=== PATIENT | female | born 1975 | race Caucasian/White ===

== ENCOUNTER 2023-09-19 22:53 | Emergency (ER) | payer BC, SELFPAY ==
[2023-09-19 23:24] LABS: Basophils % 0.4 %; Eosinophils # 0.1 10^3/uL (0.0-0.8); Eosinophils % 1.7 %; Hematocrit 33.5 % (36-47); Lymphocytes # 2.4 10^3/uL (0.8-4.8); Lymphocytes % 32.4 %; Mean Corpuscular HGB Conc 30.7 g/dL (30-55); Mean Corpuscular Volume 78.1 fl (85-98); Mean Platelet Volume 11.1 fL (7.4-10.4); Monocytes # 0.5 10^3/uL (0.2-0.9); Monocytes % 6.4 %; Neutrophils # 4.43 10^3/uL (1.8-7.7); Nucleated Red Blood Cells % 0 %; Platelet Count 276 10^3/cmm (157-399); Red Blood Count 4.29 10^6/uL (3.85-5.65); Red Cell Distribution Width 14.1 % (12.1-15.1); White Blood Count 7.52 10^3/uL (3.29-11.43)
[2023-09-19 23:42] LABS: Alanine Aminotransferase 14 U/L (0-33); Albumin Level 4.2 g/dL (3.5-5.2); Alkaline Phosphatase 77 U/L (35-105); Anion Gap 14.9 (5-19); Aspartate Amino Transferase 12 U/L (0-32); Blood Urea Nitrogen 10 mg/dL (6-20); Calcium 8.7 mg/dL (8.5-10.5); Carbon Dioxide 23 mmol/L (22-29); Chloride 101 mmol/L (98-107); Globulin 3.1 g/dL (1.3-4.6); Glomerular Filtration Rate 108.1 mL/min (90-130); Glucose 106 mg/dL (65-115); Lipase 31 U/L (13-60); Osmolality Calculated 279 mOsm/kg (285-295); Potassium 3.9 mmol/L (3.5-5.1); Sodium 135 mmol/L (136-145); Total Bilirubin 0.2 mg/dL (0.15-1.2); Total Protein 7.3 g/dL (6.6-8.7)
[2023-09-19 23:49] LABS: HCG, Serum Qual Negative (Negative)
[2023-09-20 00:07] VITALS: BP 150/86; PULSE 78; RESP 18; TEMP 36.7; O2SAT 100; BMI 35.8
--- NOTE | 2023-09-20 00:18 | ED_ITS ---
HPI - Abdominal Pain General: Chief Complaint: Abdominal Pain Stated Complaint: Pain ABD Rt Side Time Seen by Provider: 09/19/23 23:08 Source: patient Mode of arrival: ambulatory Limitations: no limitations History of Present Illness: 47-year-old female who states that she has been having abdominal pain since Wednesday states it got much worse today its in her right lower quadrant states it is a sharp pain she rates it a 6 out of 10 currently she denies any dysuria she denies any diarrhea she denies any vomiting or fevers. Associated Symptoms: Denies chills, diarrhea, dysuria, fever(s), nausea and vomiting Review of Systems Const: Denies: fever(s), chills, body aches or change in appetite ENMT: Denies: throat pain or dental pain Card: Denies: chest pain Resp: Denies: dyspnea GI: Reports: abdominal pain; Denies: nausea, vomiting or diarrhea : Denies: dysuria Musc: Denies: neck pain or back pain Skin/Breast: Denies: rash Neuro: Denies: headache(s) Physical Exam Const: COMMON NORMALS: no acute distress, patient oriented x3 and healthy ap pearing HENMT: COMMON NORMALS: normocephalic and atraumatic HEAD & SCALP: normocephalic and atraumatic Eye: COMMON NORMALS: Equal, round and reactive pupils present and EOMs intact bilaterally PUPIL: Yes Equal, round and reactive pupils present Neck/C-Spine: COMMON NORMALS: full ROM and supple Chest: COMMONS NORMALS: normal inspection of the chest and normal palpation of entire chest wall Resp: COMMON NORMALS: normal respiratory effort, No retractions, No use of accessory muscles and clear to auscultation bilaterally AUSCULTATION: clear to auscultation bilaterally Cardio: COMMON NORMALS: regular rate, regular rhythm and No murmurs present (Cardio) RATE: regular rate RHYTHM: regular rhythm GI: COMMON NORMALS: Normal to inspection, nondistended, normoactive bowel sounds present, Soft to palpation and no masses PALPATION: Yes Soft to palpation and Yes Tenderness to palpation present (GI) Details: RLQ Extremity: COMMON NORMALS: normal to inspection and full ROM Neuro: COMMON NORMALS: patient oriented x3, moves all extremities and no focal motor deficits Psych: COMMON NORMALS: mental status grossly normal, Normal thought process present and cooperative THOUGHT PROCESS: Normal thought process present Skin: COMMON NORMALS: no rashes or lesions noted and no wounds GENERAL SKIN EXAM: no rashes or lesions noted Course Vital Signs: Vital signs: Vital Signs Temperature 98.0 F 09/20/23 00:07 Pulse Rate 78 09/20/23 00:07 Respiratory Rate 16 09/20/23 00:38 Blood Pressure 150/86 09/20/23 00:07 Pulse Oximetry 100 09/20/23 00:38 Oxygen Delivery Me thod Room Air 09/20/23 00:07 MDM - Abdominal Pain Medical Decision Making Patient presents here with abdominal pain her blood work here is normal white count is normal on CT she does have uterine fibroids she has no other findings no signs of appendicitis we will place her on pain meds we will get her follow- up with OB she is return if worsening. Medical Records I reviewed the patient's medical records. Lab Data I reviewed the patient's lab results. 09/19/23 23:20 09/19/23 23:20 Labs/Radiology: Radiology Impressions Abdomen/Pelvis CT 09/20/23 00:24 IMPRESSION: 1. Large fibroid in the uterine fundus with intramural and submucosal component. Small amount of fluid and/or blood products within the endometrial cavity. 2. Additional small intramural or subserosal fibroid in the lower anterior uterine segment. Laboratory Results WBC 7.52 10^3/uL (3.29-11.43) 09/19/23 23:20 RBC 4.29 10^6/uL (3.85-5.65) 09/19/23 23:20 Hgb 10.30 g/dL (11.27-16.99) L 09/19/23 23:20 Hct 33.5 % (36-47) L 09/19/23 23:20 MCV 78.1 fl (85-98) L 09/19/23 23:20 MCH 24.0 pg (27-33) L 09/19/23 23:20 MCHC 30.7 g/dL (30-55) 09/19/23 23:20 RDW 14.1 % (12.1-15.1) 09/19/23 23:20 Plt Count 276 10^3/cmm (157-399) 09/19/23 23:20 MPV 11.1 fL (7.4-10.4) H 09/19/23 23:20 Neut % (Auto) 59.0 % 09/19/23 23:20 Lymph % (Auto) 32.4 % 09/19/23 23:20 [place] % (Auto) 6.4 % 09/19/23 23:20 Eos % (Auto) 1.7 % 09/19/23 23:20 Baso % (Auto) 0.4 % 09/19/23 23:20 Neut # (Auto) 4.43 10^3/uL (1.8-7.7) 09/19/23 23:20 Lymph # (Auto) 2.4 10^3/uL (0.8-4.8) 09/19/23 23:20 [place] # (Auto) 0.5 10^3/uL (0.2-0.9) 09/19/23 23:20 Eos # (Auto) 0.1 10^3/uL (0.0-0.8) 09/19/23 23:20 Baso # (Auto) 0.0 10^3/uL (0.0-0.1) 09/19/23 23:20 Nucleated RBC % (auto) 0 % 09/19/23 23:20 Nucleated RBCs # 0.0 /100WBC 09/19/23 23:20 Sodium 135 mmol/L (136-145) L 09/19/23 23:20 Potassium 3.9 mmol/L (3.5-5.1) 09/19/23 23:20 Chloride 101 mmol/L (98-107) 09/19/23 23:20 Carbon Dioxide 23 mmol/L (22-29) 09/19/23 23:20 Anion Gap 14.9 (5-19) 09/19/23 23:20 BUN 10 mg/dL (6-20) 09/19/23 23:20 Creatinine 0.6 mg/dL (0.5-0.9) 09/19/23 23:20 GFR Calculation 108.1 mL/min (90-130) 09/19/23 23:20 Glucose 106 mg/dL (65-115) 09/19/23 23:20 Calculated Osmolality 279 mOsm/kg (285-295) L 09/19/23 23:20 Calcium 8.7 mg/dL (8.5-10.5) 09/19/23 23:20 Total Bilirubin 0.2 mg/dL (0.15-1.2) 09/19/23 23:20 AST 12 U/L (0-32) 09/19/23 23:20 ALT 14 U/L (0-33) 09/19/23 23:20 Alkaline Phosphatase 77 U/L (35-105) 09/19/23 23:20 Total Protein 7.3 g/dL (6.6-8.7) 09/19/23 23:20 Albumin 4.2 g/dL (3.5-5.2) 09/19/23 23:20 Globulin 3.1 g/dL (1.3-4.6) 09/19/23 23:20 Lipase 31 U/L (13-60) 09/19/23 23:20 HCG, Qual Negative (Negative) 09/19/23 23:20 All radiology interpretation(s) finalized by discharge Discharge Plan Discharge Patient Disposition: Home Clinical Impression: Abdominal pain, Fibroid, uterine Condition: Stable Prescriptions: New hydrocodone-acetaminophen 5-325 mg tablet 1 tab PO Q6H PRN (Reason: pain) Qty: 14 0RF Discharge Orders: Discharge ED (Routine); Ordered 09/20/23 Ordered By: Jennifer Guajardo Referrals: Amilcar Vail MD [Physician] - 1-3 days Elian Zelaya DO [Primary Care Provider] - Discharge Activity: Resume usual activity Patient Instructions: Uterine Fibroids (ED), Abdominal Pain (ED) Coding Level of Care Code ED [facility] [employer] for [facility]
--- NOTE | 2023-09-20 00:24 | CTR_ITS ---
PROCEDURE INFORMATION: Exam: CT Abdomen And Pelvis With Contrast Exam date and time: 09/20/2023 12:57 AM Age: 47 years old Clinical indication: Abdominal pain; Localized; Prior surgery; Surgery date: 6+ months; Surgery type: Laprascopy for uterine fibroids. Patient HX: C/O lower abd/pelvic pain with vaginal bleeding. ; Additional info: Abd pain TECHNIQUE: Imaging protocol: Computed tomography of the abdomen and pelvis with contrast. Radiation optimization: All CT scans at this facility use at least one of these dose optimization techniques: automated exposure control; mA and/or kV adjustment per patient size (includes targeted exams where dose is matched to clinical indication); or iterative reconstruction. Contrast material: OMNI 350; Contrast volume: 100 ml; Contrast route: INTRAVENOUS (IV); REPORTING DATA: Count of CT and Cardiac NM exams in prior 12 months: This patient has received 0 known CTs and 0 known cardiac nuclear medicine studies in the 12 months prior to the current study. COMPARISON: No relevant prior studies available. RADIATION DOSE METRICS: Total DLP (mGy-cm): 817.07 FINDINGS: Liver: Unremarkable. Gallbladder and bile ducts: No calcified stones. No biliary ductal dilation. No pericholecystic fluid. Pancreas: Unremarkable. No duct dilation. Spleen: Unremarkable. Adrenal glands: Unremarkable. Kidneys and ureters: No hydronephrosis or hydroureter. No renal or ureteral calculi. Stomach and bowel: No bowel obstruction. Appendix: No evidence of appendicitis. Intraperitoneal space: Unremarkable. No free air. No significant fluid collection. Vasculature: No abdominal aortic aneurysm. Lymph nodes: No enlarged lymph nodes. Urinary bladder: Unremarkable as visualized. Reproductive: Large fibroid in the uterine fundus measuring approximately 3.7 x 3.7 cm, which appears approximately 50% intramural and 50% submucosal. Small amount of fluid and/or blood products within the endometrial cavity. Small intramural or subserosal fibroid along the anterior lower uterine segment, series 6, image 40, measuring 1.1 cm. Small probable nabothian cyst in the cervix. Bones/joints: No acute fracture. No aggressive osseous lesions. Soft tissues: Unremarkable. CT/CT abdomen pelvis w con* [id number] IMPRESSION: 1. Large fibroid in the uterine fundus with intramural and submucosal component. Small amount of fluid and/or blood products within the endometrial cavity. 2. Additional small intramural or subserosal fibroid in the lower anterior uterine segment.
[2023-09-20] MEDS: ondansetron 2 mg/ML SDV 2 mL 4 MG IVP (00:37)
[2023-09-20 00:38] VITALS: RESP 16; O2SAT 100
[2023-09-20] MEDS: morphine 4 mg/mL SDV 1 mL IVP (00:38)
[2023-09-20] MEDS: iohexol 350 mg/mL 500 mL Btl (per mL) IV (00:59)
[2023-09-20 01:43] VITALS: BP 121/72; PULSE 60; RESP 18; O2SAT 100
--- NOTE | 2023-09-20 10:49 | DCPLANNER ---
Message was sent to [facility] on 09/20/23 at [id number]. [facility] to contact patient.
== END 2023-09-20 01:44 | disposition home or self-care (01) ==
PROVIDERS: Emergency Provider Emergency Medicine; PCP Electrodiagnostic Medicine
DX: R10.31 Right lower quadrant pain (principal); D25.9 Leiomyoma of uterus, unspecified
CPT/HCPCS: 36415; 74177; 80053; 83690; 84703; 85025; 96374; 96375; 99285; J2270; J2405; Q9967

== ENCOUNTER 2024-01-25 09:26 | Observation (INO) | payer BC, SELFPAY ==
--- NOTE | 2024-01-21 10:43 | ANES.PREANE2 ---
Pre-Anesthetic Assessment Height/Weight: Height 1.57 m Operation Date: 01/25/24 11:05 Proposed Procedures p Laparoscopic assisted vaginal hysterectomy 62016,D21.9,N93.9,R10.2(Not Applicable) - Amilcar Vail MD Familial anesthetic complications: NOne Social No alcohol and No tobacco Exam alert, oriented x 3, clear to auscultation bilaterally and regular rate & rhythm Airway Mallampati: Class II Comments: Comments: Missing tooth Pulmonary Asthma (seasonal (This is the season)) Metabolic Thyroid Disease (hx ru's) Anesthetic Plan ASA status: 2 Anesthesia: General Risk of > 500 ml blood loss (7ml/kg in children): No Medications/Allergies Home Medications Medication Instructions Recorded Confirmed Last Taken Type No Known Home Medications 01/21/24 01/21/24 Unknown History Allergies Allergy/AdvReac Type Severity Reaction Status Date / Time No Known Allergies Allergy Verified 01/21/24 10:30 [facility] Anesthesia Family History Mother Uterine cancer Heart disease Thyroid disease Grandmother Ovarian cancer Heart disease Thyroid disease Father Heart disease Stroke Grandfather Heart disease Hypertension Stroke Denies family history of Colon cancer Brain cancer Diabetes Hyperlipidemia Data Anesthesia Cardiac Studies: No Data to Display
[2024-01-21 12:18] LABS: Add Urine Microscopic? NO; Charge for UA Resulting for Rev
[2024-01-21 12:22] LABS: Basophils % 0.5 %; Eosinophils # 0.1 10^3/uL (0.0-0.8); Eosinophils % 2.2 %; Hematocrit 32.5 % (36-47); Lymphocytes # 1.7 10^3/uL (0.8-4.8); Lymphocytes % 27.8 %; Mean Corpuscular HGB Conc 30.5 g/dL (30-55); Mean Corpuscular Hemoglobin 24.1 pg (27-33); Mean Corpuscular Volume 79.1 fl (85-98); Mean Platelet Volume 12.2 fL (7.4-10.4); Monocytes # 0.4 10^3/uL (0.2-0.9); Neutrophils # 3.83 10^3/uL (1.8-7.7); Neutrophils % 63.3 %; Nucleated Red Blood Cells % 0 %; Platelet Count 278 10^3/cmm (157-399); Red Blood Count 4.11 10^6/uL (3.85-5.65); Red Cell Distribution Width 15.2 % (12.1-15.1); White Blood Count 6.04 10^3/uL (3.29-11.43)
[2024-01-21 12:26] LABS: Bilirubin Urine Neg (Negative); Blood Urine Neg (Negative); Glucose Urine UA Norm (Normal); Ketones Urine Negative (Negative); Leukocyte Esterase Urine Negative (Negative); Nitrate Urine Negative (Negative); Protein Urine Neg (Negative); Specific Gravity, Urine 1.005 (1.005-1.030); Urine Appearance Clear (CLEAR); Urine Color Yellow (Yellow); Urobilinogen Urine Neg (Negative); pH Urine 7 (5-7)
[2024-01-21 12:28] LABS: OR HCG Qualitative Urine Negative (Negative)
[2024-01-21 12:40] LABS: Alanine Aminotransferase 19 U/L (0-33); Albumin Level 4.1 g/dL (3.5-5.2); Alkaline Phosphatase 74 U/L (35-105); Anion Gap 13.4 (5-19); Aspartate Amino Transferase 14 U/L (0-32); Blood Urea Nitrogen 7 mg/dL (6-20); Calcium 8.7 mg/dL (8.5-10.5); Carbon Dioxide 27 mmol/L (22-29); Chloride 103 mmol/L (98-107); Globulin 2.9 g/dL (1.3-4.6); Glomerular Filtration Rate 132.8 mL/min (90-130); Glucose 101 mg/dL (65-115); Osmolality Calculated 286 mOsm/kg (285-295); Potassium 4.4 mmol/L (3.5-5.1); Sodium 139 mmol/L (136-145); Total Bilirubin 0.3 mg/dL (0.15-1.2)
[2024-01-25] VITALS (25 sets, daily range): BP systolic 104–144; BP diastolic 63–95; PULSE 51–91; RESP 12–20; TEMP 36.4–37.8; O2SAT 90–100; BMI 38.9
[2024-01-25] MEDS: sodium chloride 0.9% 500 ML IV (06:23)
[2024-01-25] MEDS: scopolamine 1.5 Patch 1 PATCH TRANSDERMA (06:25)
[2024-01-25 06:33] LABS: OR HCG Qualitative Urine Negative (Negative)
[2024-01-25] MEDS: sodium chloride 0.9% 1,000 ML 30 ML IV (06:49)
--- NOTE | 2024-01-25 06:49 | W.PM.OPSUD ---
Surgery/Procedure H&P Update DATE OF PROCEDURE: January 25, 2024 DATE H&P PERFORMED: 01/21/24 H&P UPDATE INFORMATION: I have reviewed H&P completed within last 30 days, I have examined patient prior to procedure and No changes to prior documentation PREOP DIAGNOSIS: Fibroid uterus, pelvic pain PLANNED PROCEDURE: Operation Date: 01/25/24 07:00 Proposed Procedures p Laparoscopic assisted vaginal hysterectomy 13374,D21.9,N93.9,R10.2(Not Applicable) - Amilcar Vail MD
--- NOTE | 2024-01-25 06:58 | P.ANESUD_ITS ---
Pre-Anesthetic Update Pre-Anesthetic Assessment: Date of Surgery/Procedure: 01/25/24 Preop Liat gnosis: Fibroid uterus, pelvic pain Proposed Procedure: Operation Date: 01/25/24 07:00 Proposed Procedures p Laparoscopic assisted vaginal hysterectomy 40314,D21.9,N93.9,R10.2(Not Applicable) - Amilcar Vail MD Any changes to Pre-Anesthetic Assessment?: No Last Intake: Intake Last Liquid Date 01/24/24 Last Liquid Time 18:00 Last Solid Date 01/24/24 Last Solid Time 18:00 Vitals: Temperature 98.9 F 01/25/24 06:06 Temperature Source Temporal Artery S can 01/25/24 06:06 Pulse Rate 91 01/25/24 06:06 Respiratory Rate 16 01/25/24 06:06 Blood Pressure 139/95 01/25/24 06:06 Blood Pressure Kandace n 109 01/25/24 06:06 Pulse Oximetry 98 01/25/24 06:06 Oxygen Delivery Me thod Room Air 01/25/24 06:06 Exam: Pre-Anes Outpt Exam: alert, oriented x 3, clear to auscultation bilaterally and regular rate & rhythm Cardiac Studies: No Data to Display
[2024-01-25] MEDS: ceFOXitin 2,000 MG in sodium chloride 0.9% (plus) 50 ML 100 MG IV (07:00)
[2024-01-25] MEDS: BUPivacaine 0.5% INJ 10 mL INJECTION (08:00)
[2024-01-25] MEDS: lidocaine-epi 1% 20 mL INJ INJECTION (08:00)
--- NOTE | 2024-01-25 09:25 | P.OP_ITS ---
Operative Report Date of procedure: January 25, 2024 Pre-op diagnosis: Fibroid uterus Pelvic pain Abnormal uterine Post-op diagnosis: same Post-op findings: Enlarged uterus Procedure done: Laparoscopic assisted vaginal hysterectomy Specimens removed/disposition: Uterus with left and right fallopian tube Surgeon: Amilcar Vail MD Estimated blood loss (mL): 200 IV fluids (mL): 1,000 Urine output (mL): 250 Complications: none Procedure: After discussing informed consent again, the patient was taken to the operating room where general anesthesia was administered. She was placed in the dorsal lithotomy position in low stirrups and prepped and draped in sterile fashion. Pre-Procedure Time-Out verifying the correct patient identity, correct procedure verified with consent, correct site and side, correct patient position, availability of correct implants and any special equipment or requi rements was performed and acknowledge by the OR team. After the initial preparation, the procedure commenced at the vagina. With a Bookwalter vaginal retractor was place to visualize the cervix; the a nterior and posterior lips of the cervix were separately grasped and clamped with vickie tooth tenaculum. The cervix was then dilated to a #6 hegar dilator and a uterine manipulator within the uterine cavity for manipulation purposes being careful not to puncture the uterus. A Redmond catheter was placed in the bladder. Attention was then turned to the abdomen. The umbilical region was infiltrated with 2% lidocaine with epinephrine. Following infiltration with lidocaine, an intraumbilical incision was made and the Verres needle was gently advanced taking care to feel for the typical sensation of penetrating the peritoneum. With CO2 infiltration, an opening pressure of 5 mmHg was noted, and following this, a pneumoperitoneum of 15 mmHg was created. A 5 mm Optiview trocar was then passed through the same incision under direct visualization. Trocar was removed and the laparoscope was then inserted through the trocar sleeve. Visualization of the peritoneal cavity was then obtained and a brief inspection did not reveal any signs of complications from entry. Under direct observation, a second incision was made 3 cm above the symphysis pubis, and a 5 mm trocar and sleeve were admitted into the abdomen under direct, laparoscopic visualization, a 5mm flank port was then placed laterally on left sides taking care to respect anatomical landmarks and vessels without complication. Once the placement of the ports was complete, the actual laparoscopic procedure began. Beginning on the right side and distally along the length of the fallopian tube, the mesosalpinx was exposed by lifting the tube/ovary up towards the anterior abdominal wall. The mesosalpinx was then sequentially, clamped, ligated, and cut using the LigaSure working alongside the length of the tube and towards the cornua. The same process was repeated on the left, sequentially clamping, sealing/ligating, and cutting the mesosalpinx being sure to not injure the adjacent ovarian tissue or other surrounding structures. The round ligament was then clamped, sealed/ligated and cut with the LigaSure device. Following this, the anterior leaf of the broad ligament was then taken down on the left side, dissecting down towards the peritoneal reflection at the base of the bladder and adjacent to the cervix. The same process was then repeated on the left side such that both sides met and the anterior leaflet had been appropriately skeletonized. To ensure excellent hemostasis prior to further manipulation, the pedicles of the cardinal ligament was then clamped sealed/ligated and divided on each side using the LigaSure device. Attention was then turned to the vaginal aspect of the surgery. The Redmond catheter was clamped. A Bookwalter vaginal retractor was placed in the vagina and the uterine manipulator was removed. The tenaculum was repositioned anteriorly and posteriorly. A circumferential incision was made at the cervical vaginal reflection using cautery. This was undermined first anteriorly and a colpotomy made without difficulty. This was then repeated posteriorly and a similar colpotomy made. Beulah retractors were then placed into each of these incisions. Beginning first on the patient's left, the uterosacral and cardinal ligament was clamped, sealed, divided, and suture ligated. Two bites were required to reach the previous dissection margin of the left side. The same process was then repeated on the patient's right hand side, at which point, the specimen was completely freed. Once the sutures had been placed and the pedicles secured, the uterus along with both tubes and ovaries were removed tr ansvaginally without difficulty. All pedicles were inspected and hemostasis was confirmed. The vaginal vault was then oversewn with a running locking Vicryl suture, securing first the posterior edge of the cuff followed by the anterior edge. Good hemostasis was obtained. Two [id number] sutures were then placed across the vaginal vault to close it. Once these had been tied off, all sutures were trimmed; a wet sponge was placed in the vagina to pack it off while attention was again turned back to the abdomen. All instruments were removed from the vagina at this time. The abdomen was carefully inspected to ensure complete hemostasis. Once the entire abdomen was inspected the instruments carefully removed. The ports were then removed under direct visualization being sure to note hemostasis of the port sites on removal. The incisions were then closed with interrupted 3-0 Vicryl sutures and Dermabond. The patient tolerated the procedure well, anesthesia reversed, and the patient was taken to the recovery room in stable condition. All sponges, instruments, and sharps were counted and correct x 3.
[2024-01-25] MEDS: fentaNYL 50 mcg/mL INJ 2mL IVP ×2 (09:46→09:56)
[2024-01-25] MEDS: acetaminophen 1,000 MG/100 ML PIGGYBACK 400 MG IV (10:12)
--- NOTE | 2024-01-25 10:19 | PC.NURSE ---
1012 - YESSICA Iraheta as well as House Sup notified of pts temp currently at 100 - upon arrival to pacu pt noted to have temp of 99.3 - anesthesia aware as well - per anesthesia per pt - low grade temp started yesterday with cold like symptoms - orders per anesthesia - per house sup will change pt overnight bed from ob to ms -currently awaiting floor bed
[2024-01-25] MEDS: morphine 4 mg/mL SDV 1 mL 2 MG IVP (10:58)
--- NOTE | 2024-01-25 11:45 | ANE.PACU2 ---
Inpatient post-anesthesia follow up: Airway intact: Yes Vital signs: Temperature 97.7 F Pulse Rate 62 Respiratory Rate 15 Blood Pressure 118/79 Pulse Oximetry 96 Oxygen Delivery Me thod Room Air Oxygen Flow Rate 8 Fraction of Inspir ed Oxygen Hydration adequate: Yes Nausea and vomiting: No Pain level: 1 Mental status: Baseline
[2024-01-25] MEDS: ketorolac 30 mg/mL INJ IVP ×2 (12:18→17:28)
[2024-01-25] MEDS: dextrose 5%-lactated ringers 1,000 ML 125 ML IV ×2 (12:19→20:05)
[2024-01-25] MEDS: HYDROcodone-acetaminophen 5-325 mg Tablet PO ×2 (14:34→22:29)
[2024-01-25] MEDS: docusate sodium 100 mg Capsule PO (17:29)
[2024-01-26] MEDS: ketorolac 30 mg/mL INJ IVP ×2 (00:01→06:13)
[2024-01-26] MEDS: dextrose 5%-lactated ringers 1,000 ML 125 ML IV (04:05)
[2024-01-26 05:14] LABS: Hematocrit 25.8 % (36-47); Mean Corpuscular Hemoglobin 24.2 pg (27-33); Mean Corpuscular Volume 78.2 fl (85-98); Mean Platelet Volume 11.1 fL (7.4-10.4); Platelet Count 181 10^3/cmm (157-399); Red Cell Distribution Width 15.3 % (12.1-15.1); White Blood Count 5.37 10^3/uL (3.29-11.43)
[2024-01-26 07:40] VITALS: BP 110/73; PULSE 49; RESP 18; TEMP 36.5; O2SAT 99
[2024-01-26] MEDS: docusate sodium 100 mg Capsule PO (08:09)
[2024-01-26] MEDS: ibuprofen 800 mg tablet PO (09:02)
--- NOTE | 2024-01-26 09:23 | PM.OBGYDC ---
Discharge Providers HANDS ASSEMBLER Date of Admission: 01/25/24 09:26 Date of Discharge: 01/26/24 Attending Provider at Admission: Amilcar Fiore MD Attending Provider at Discharge: Amilcar Fiore MD Primary Care Provider: Elian Zelaya DO Reason for Visit Reason for Visit: D21.9, N93.9, R10.2 Hospital Course Hospital Course Ms. Sousa is a 48 year old with a history of pelvic pain, uterine fibroids and abnormal uterine bleeding unresponsive to medical management she was admitted for a laparoscopic-assisted vaginal hysterectomy. The procedure was performed without complications. Overnight observation was uneventful. She is ambulating without difficulty. Tolerating diet well. She is afebrile and hemodynamically stable postoperative day 1. She was counseled regarding pelvic rest for 6 weeks (no sex, no tampons, no vaginal douches). Return to the emergency room if any fever, increased bleeding or pain. Physical Exam Narrative: GA: Alert and oriented ?3. HEENT: WNL. Heart: Regular rate and rhythm. Lungs: Clear to auscultation bilaterally. Abdomen: Bowel sounds present, nontender, minimal tenderness, incision clean and dry, no redness, pain or edema. BUSINESS ANALYSIS PROFESSIONAL: No bleeding. Extremities: No edema, no cyanosis, no calves pain. Urinary Catheter Management: [place]: Cath Placed During This Visit: yes Urinary Catheter Date of Insertion: 01/25/24 Urinary Catheter Time of Insertion: 07:34 History History History 5 Term 2 0 Miscarriages/Ectopic 3 Living Children 2 Discharge Data Studies Completed and Pending Pending at discharge Category Date Time Status Pathology: Surgical [PTH] Routine Pth 01/25/24 09:36 Received Laboratory Results WBC 5.37 10^3/uL (3.29-11.43) 01/26/24 05:03 RBC 3.30 10^6/uL (3.85-5.65) L 01/26/24 05:03 Hgb 8.00 g/dL (11.27-16.99) L 01/26/24 05:03 Hct 25.8 % (36-47) L 01/26/24 05:03 MCV 78.2 fl (85-98) L 01/26/24 05:03 MCH 24.2 pg (27-33) L 01/26/24 05:03 MCHC 31.0 g/dL (30-55) 01/26/24 05:03 RDW 15.3 % (12.1-15.1) H 01/26/24 05:03 Plt Count 181 10^3/cmm (157-399) 01/26/24 05:03 MPV 11.1 fL (7.4-10.4) H 01/26/24 05:03 Neut % (Auto) 63.3 % 01/21/24 10:30 Lymph % (Auto) 27.8 % 01/21/24 10:30 [place] % (Auto) 6.0 % 01/21/24 10:30 Eos % (Auto) 2.2 % 01/21/24 10:30 Baso % (Auto) 0.5 % 01/21/24 10:30 Neut # (Auto) 3.83 10^3/uL (1.8-7.7) 01/21/24 10:30 Lymph # (Auto) 1.7 10^3/uL (0.8-4.8) 01/21/24 10:30 [place] # (Auto) 0.4 10^3/uL (0.2-0.9) 01/21/24 10:30 Eos # (Auto) 0.1 10^3/uL (0.0-0.8) 01/21/24 10:30 Baso # (Auto) 0.0 10^3/uL (0.0-0.1) 01/21/24 10:30 Nucleated RBC % (auto) 0 % 01/21/24 10:30 Nucleated RBCs # 0.0 /100WBC 01/21/24 10:30 Sodium 139 mmol/L (136-145) 01/21/24 10:30 Potassium 4.4 mmol/L (3.5-5.1) 01/21/24 10:30 Chloride 103 mmol/L (98-107) 01/21/24 10:30 Carbon Dioxide 27 mmol/L (22-29) 01/21/24 10:30 Anion Gap 13.4 (5-19) 01/21/24 10:30 BUN 7 mg/dL (6-20) 01/21/24 10:30 Creatinine 0.5 mg/dL (0.5-0.9) 01/21/24 10:30 GFR Calculation 132.8 mL/min (90-130) H 01/21/24 10:30 Glucose 101 mg/dL (65-115) 01/21/24 10:30 Calculated Osmolality 286 mOsm/kg (285-295) 01/21/24 10:30 Calcium 8.7 mg/dL (8.5-10.5) 01/21/24 10:30 Total Bilirubin 0.3 mg/dL (0.15-1.2) 01/21/24 10:30 AST 14 U/L (0-32) 01/21/24 10:30 ALT 19 U/L (0-33) 01/21/24 10:30 Alkaline Phosphatase 74 U/L (35-105) 01/21/24 10:30 Total Protein 7.0 g/dL (6.6-8.7) 01/21/24 10:30 Albumin 4.1 g/dL (3.5-5.2) 01/21/24 10:30 Globulin 2.9 g/dL (1.3-4.6) 01/21/24 10:30 Urine Color Yellow (Yellow) 01/21/24 10:30 Urine Appearance Clear (CLEAR) 01/21/24 10:30 Urine pH 7 (5-7) 01/21/24 10:30 Ur Specific [place] 1.005 (1.005-1.030) 01/21/24 10:30 Urine Protein Neg (Negative) 01/21/24 10:30 Urine Glucose (UA) Norm (Normal) 01/21/24 10:30 Urine Ketones Negative (Negative) 01/21/24 10:30 Urine Blood Neg (Negative) 01/21/24 10:30 Urine Nitrate Negative (Negative) 01/21/24 10:30 Urine Bilirubin Neg (Negative) 01/21/24 10:30 Urine Urobilinogen Neg mg/dL (Negative) 01/21/24 10:30 Ur Leukocyte Esterase Negative (Negative) 01/21/24 10:30 Urine HCG, Qual Negative (Negative) 01/25/24 06:01 Blood Type A Positive 01/25/24 06:15 Rho(D) Type Rh positive 01/25/24 06:15 Antibody Screen Negative 01/25/24 06:15 Vitals Last Vital Signs Temp 97.7 F 01/26/24 07:40 Pulse 49 L 01/26/24 07:40 Resp 18 01/26/24 07:40 BP 110/73 01/26/24 07:40 Pulse Ox 99 01/26/24 07:40 O2 Del Method Room Air 01/26/24 07:40 O2 Flow Rate 8 01/25/24 09:43 Results Labs OB ([facility]): Blood Type A Positive 01/25/24 Antibody Screen Negative 01/25/24 Hct 25.8 % (36-47) L 01/26/24 Hgb 8.00 g/dL (11.27-16.99) L 01/26/24 Rho(D) Type Rh positive 01/25/24 Plt Count 181 10^3/cmm (157-399) 01/26/24 HCG, Qual Negative (Negative) 09/19/23 Discharge Plan Discharge Patient Disposition: Home Condition: Stable Prescriptions: New hydrocodone-acetaminophen 5-325 mg tablet 1 tab PO Q4H PRN (Reason: pain) Qty: 30 0RF docusate sodium [Colace] 100 mg capsule 100 mg PO BID Qty: 60 0RF ferrous sulfate [Iron (ferrous sulfate)] 325 mg (65 mg iron) tablet 325 mg PO BID Qty: 60 0RF acetaminophen 325 mg capsule 325 mg PO Q4H PRN (Reason: fever or pain) Qty: 60 0RF ibuprofen 800 mg tablet 800 mg PO TID PRN (Reason: pain) Qty: 60 0RF No Action No Known Home Medications Discharge Orders: Discharge Order (Routine); Ordered 01/26/24 Ordered By: Amilcar Fiore Referrals: Amilcar Fiore MD [Physician] - 02/09/24 1:30 pm (FOLLOW UP WITH DR FIORE FEBRUARY 26 AT 1:45) Discharge Diet: Usual diet Discharge Activity: Limit activity as instructed Patient Instructions: Opioid Safety, Vaginal Hysterectomy (GEN), Laparoscopic Hysterectomy (GEN), Hysterectomy (GEN) Activity Restrictions/Additional Instructions: 1. Please call [facility] on next working day to make your post-operative appointment in 2 weeks. 2. Please stay home until you come back to the clinic on first post-hospatilization check up. 3. Please follow instructions on your medications CAREFULLY. 4. If you have abdominal incision, do not cover it unless dressing is necessary because of drainage. OK to shower, but avoid bath. Leave steri-strips until they fall off. If they are still on one week after surgery, you may remove them. 5. If you had vaginal surgery or vaginal repair, Dr. Fiore may instruct you to take SITZ bath. 6. Yellow, blood tinged odorous vaginal discharge is usually normal after hysterectomy or vaginal surgeries. 7. No SEXUAL INTERCOURSE, tampons, or douches until you are completely released from the post-operative care. 8. Avoid constipation by eating right and maybe using some Metamucil or Milk of Magnesia. 9. All prescription refills are given during the working hours. Please do no wait till it runs out. Call the clinic at [phone] before your medication runs out. The clinic will get in touch with your doctor to prescribe medications if necessary. 10. Please remain within 40 mile radius from our hospital because emergencies do happen now and then during the post-operative period. 11. If you have stairs at home, take one step at a time slowly and minimize the number of trips. It helps to stay in one floor for the next few days. No lifting except what you can lift by one hand until you are released from the post-operative care. 12. Driving is discouraged until you are well healed. It may be 3-4 weeks before you feel strong enough to drive. You should be able to turn and look through the rear window without pain and you should be able to push the brake pedal very hard without pain before you drive. No fast rules, but SAFETY should be your primary concern. DO NOT drive if you are on sedating medications such as narcotics. 13. Call the clinic (during working hours) to make urgent appointment or go to the Emergency room, if any of the following occurs: i. Vaginal bleeding becomes heavy, more than a period. ii. Incision becomes red and sore, or drains pus. iii. Your TEMPERATURE is over 100.4F or you have chill. iv. IV site becomes red and swollen (a little ``knot?? is usually OK) v. Persistent nausea and vomiting vi. Persistent constipation or diarrhea vii. Rash or allergic reaction to medications. Discharge Attestations HANDS ASSEMBLER Time Spent in Discharge Care*: greater than 30 min Coding Level of Care Code Acute Code for Chg Fwd
[2024-01-26 10:35] VITALS: BP 110/73; PULSE 49; RESP 18; TEMP 36.5; O2SAT 99
--- NOTE | 2024-01-26 10:36 | PC.NURSE ---
Discharge instructions given to pt and her . NO questions or concerns at this time.
[2024-02-16] VITALS (123 sets, daily range): BP systolic 89–146; BP diastolic 50–73; PULSE 70–196; TEMP 35.9–36.3; O2SAT 87–100
[2024-02-17 10:59] VITALS: BP 116/66; PULSE 76; TEMP 36
[2024-02-17 15:55] VITALS: BP 117/75; PULSE 85; TEMP 35.8
[2024-02-17 21:45] VITALS: BP 114/67; PULSE 84; TEMP 35.9
[2024-02-18 03:07] VITALS: BP 111/64; PULSE 82
== END 2024-01-26 10:46 | disposition home or self-care (01) ==
LOC: OBGYN 09:27 → MEDSURG 11:49
PROVIDERS: Admitting Provider Obstetrics & Gynecology; PCP Electrodiagnostic Medicine; Visit Provider Obstetrics & Gynecology
PROC: 0UT9FZZ Resection of Uterus, Via Natural or Artificial Opening With Percutaneous Endoscopic Assistance (ICD-10-PCS; CPT 58262; principal; 2024-01-25 07:00)
DX: D25.9 Leiomyoma of uterus, unspecified (principal)
CPT/HCPCS: 58262; 36415; 80053; 81003; 81025; 84703; 85025; 85027; 86850; 86900; 88307; G0378; J0131; J0694; J1100; J1170; J1200; J1885; J2270; J2405; J2704; J2710; J3010; J3490; J7030; J7040; J7121